=== PATIENT | female | born 1980 | race Caucasian/White ===

== ENCOUNTER 2019-11-15 12:14 | Emergency (ER) | payer BC, OTHER ==
[~2019-11-15] VITALS: Ht 167.6 cm; Wt 59.0 kg
[2019-11-15] MEDS ORDERED: ONDANSETRON ODT 4 MG TAB PO ONE (15:45)
[2019-11-15] MEDS ORDERED: HYDROmorphone HCL 2 MG/ML VL IM ONE (15:45)
[2019-11-15] MEDS ORDERED: KETOROLAC TROMETH 30 MG/ML 1ML VIAL ONE (15:56)
[2019-11-15] MEDS ORDERED: KETOROLAC TROMETH 30 MG/ML 1ML VIAL IV ONE (16:00)
[2019-11-15 17:22] VITALS: BP 128/82
== END 2019-11-15 17:42 | disposition home or self-care (01) ==
LOC: EDBD 12:14 → ER 12:14
DX: T14.8XXA Other injury of unspecified body region, initial encounter (principal); R07.89 Other chest pain; Z88.8 Allergy status to other drugs, medicaments and biological substances; Z88.1 Allergy status to other antibiotic agents; X58.XXXA Exposure to other specified factors, initial encounter; Y93.89 Activity, other specified; Y92.89 Other specified places as the place of occurrence of the external cause; Y99.8 Other external cause status
CPT/HCPCS: 72128; 72131; 96374; 99285; J1885